=== PATIENT | male | born 1990 | race Two or more races ===

== ENCOUNTER 2021-09-16 02:24 | Emergency (ER) | payer OTHER ==
[~2021-09-16] VITALS: Ht 170.2 cm; Wt 81.6 kg
[2021-09-16] MEDS ORDERED: IBUPROFEN 600 MG TABLET PO ONE (05:30)
[2021-09-16] MEDS ORDERED: IBUPROFEN 600 MG TABLET ONE (05:34)
[2021-09-16 06:20] VITALS: BP 134/70
== END 2021-09-16 06:27 ==
LOC: ER 02:35
DX: M79.10 Myalgia, unspecified site (principal); Z20.822 Contact with and (suspected) exposure to COVID-19; F17.200 Nicotine dependence, unspecified, uncomplicated
CPT/HCPCS: 71046; 87426; 99284; C9803